=== PATIENT | male | born 1980 | race Caucasian/White ===

== ENCOUNTER 2023-05-19 16:47 | Emergency (ER) | payer BC ==
[~2023-05-19] VITALS: Ht 170.2 cm; Wt 122.7 kg
[2023-05-19 17:15] VITALS: BP 197/87
== END 2023-05-19 21:58 | disposition left against medical advice (07) ==
LOC: ER 16:48
DX: R22.41 Localized swelling, mass and lump, right lower limb (principal); Z53.21 Procedure and treatment not carried out due to patient leaving prior to being seen by health care provider
CPT/HCPCS: 93971; 99281

== ENCOUNTER 2023-07-18 09:18 | Inpatient (IN) | payer BC ==
[~2023-07-18] VITALS: Ht 170.2 cm; Wt 110.8 kg
[2023-07-18] VITALS (10 sets, daily range): BP systolic 100–148; BP diastolic 43–78; PULSE 77–124; RESP 21–39; O2SAT 91–97
[2023-07-18 09:44] LABS: BASOPHILS # (AUTO) 0.1 X10'3 (0-0.2); BASOPHILS % (AUTO) 0.4 % (0-1); EOSINOPHILS # (AUTO) 0.2 X10'3 (0-0.9); EOSINOPHILS % (AUTO) 1.1 % (0-6); HEMATOCRIT 32.3 % (42.0-52.0); HEMOGLOBIN 9.9 g/dl (14.0-17.9); LYMPHOCYTES % (AUTO) 6.9 % (21-51); MEAN CORPUSCULAR HEMOGLOBIN 24.3 PG (27.0-31.0); MEAN CORPUSCULAR HGB CONC 30.8 g/dL (33.0-36.5); MEAN CORPUSCULAR VOLUME 78.9 FL (78-98); MEAN PLATELET VOLUME 10.1 FL (7.4-10.4); MONOCYTES # (AUTO) 1.3 X10'3 (0-0.9); MONOCYTES % (AUTO) 9.1 % (2-12); NEUTROPHILS # (AUTO) 11.7 X10'3 (1.8-7.7); NEUTROPHILS % (AUTO) 82.5 % (42-75); PLATELET COUNT 226 X10'3 (140-440); RED BLOOD COUNT 4.09 X10'6 (4.70-6.10); RED CELL DISTRIBUTION WIDTH 18.5 % (11.5-14.5); WHITE BLOOD COUNT 14.2 X10'3 (4.5-11.0)
[2023-07-18 10:20] LABS: ALANINE AMINOTRANSFERASE 45 U/L (12-78); ALBUMIN 2.6 G/DL (3.4-5.0); ALBUMIN/GLOBULIN RATIO 0.5 (1.1-1.5); ALKALINE PHOSPHATASE 90 IU/L (46-116); ANION GAP 9 (8-16); ASPARTATE AMINO TRANSFERASE 31 U/L (10-37); BILIRUBIN,TOTAL 0.5 MG/DL (0.1-1.0); BLOOD UREA NITROGEN 16 MG/DL (7-18); BUN/CREATININE RATIO 13.3 (10.0-20.0); CALCIUM 8.7 MG/DL (8.5-10.1); CHLORIDE 97 MMOL/L (99-107); GLUCOSE 151 MG/DL (70-104); POTASSIUM 3.8 MMOL/L (3.5-5.1); SODIUM 132 MMOL/L (135-145); TOTAL CARBON DIOXIDE 26.4 MMOL/L (24-32); TOTAL PROTEIN 8.2 G/DL (6.4-8.2); eCRCL 75 ML/MIN; eGFR 66 ML/MIN
[2023-07-18 10:27] LABS: PRO BRAIN NATRIURETIC PEPTIDE 1278 PG/ML (0-125)
[2023-07-18] MEDS ORDERED: iohexol 350MG/ML 100ml bottle IV ONE (10:44)
[2023-07-18 10:50] LABS: APTT 28 SECONDS (22-32); D-DIMER 3.48 MG/L FEU (0-0.50); INR 1.1 INR; PROTHROMBIN TIME 11.4 SECONDS (9.0-12.0)
[2023-07-18 11:43] LABS: HIV ANTIBODY 1&2 RAPID NON-REACTIVE (Neg)
[2023-07-18 11:45] LABS: C-REACTIVE PROTEIN 39.06 MG/DL (0.0-0.5)
[2023-07-18 12:42] LABS: ABG BASE EXCESS -1.2 mmol/L (-2.0-2.0); ABG HCO3 22.4 mmol/L (22.0-26.0); ABG OXYGEN SATURATION 89.8 % (94-97); ABG PCO2 (T) 32.7 mmHg (35.0-48.0); ABG PH (T) 7.453 (7.340-7.440); ABG PO2 (T) 54.4 mmHg (75.0-100.0); ALLEN'S TEST Modified; FCOHb 0.5 % (0.0-3.9); FHHb 10.1 % (0.0-5.0); FLOW 6 L/min; FMetHb 0.1 % (0.0-1.5); FO2Hb 89.3 % (94-97); MODE HIGH FLOW; TOTAL HEMOGLOBIN 9.2 G/dl (14.0-17.9)
[2023-07-18] MEDS ORDERED: CefTRIAXone 2gm/D5W 50ml BAG 50 ML IV ONE (12:45)
[2023-07-18] MEDS ORDERED: azithromycin/NS 500mg/250ml 250 ML IV ONE (12:45)
[2023-07-18 14:08] LABS: ABG BASE EXCESS -1.7 mmol/L (-2.0-2.0); ABG OXYGEN SATURATION 98.1 % (94-97); ABG PCO2 (T) 33.9 mmHg (35.0-48.0); ABG PH (T) 7.431 (7.340-7.440); ABG PO2 (T) 104.6 mmHg (75.0-100.0); ALLEN'S TEST POSITIVE; FCOHb 0.3 % (0.0-3.9); FHHb 1.9 % (0.0-5.0); FMetHb 0.2 % (0.0-1.5); FO2Hb 97.6 % (94-97); MODE MASK - CPAP; RESPIRATORY RATE 0 b/min; TIDAL VOLUME 668 mL; TOTAL HEMOGLOBIN 10.8 G/dl (14.0-17.9)
[2023-07-18] MEDS ORDERED: LORazepam 2 mg/ml vial IV ONE (14:30)
[2023-07-18] MEDS ORDERED: potassium Cl 40MEQ/1/2NS 520ml 520 ML IV PRN (15:10)
[2023-07-18] MEDS ORDERED: mag hydrox/Alum hydrox/simeth 30ml oral suspension PO PRN (15:10)
[2023-07-18] MEDS ORDERED: potassium Cl 20 mEq SR tablet PO PRN ×2 (15:10)
[2023-07-18] MEDS ORDERED: ondansetron/PF 4mg/2ml inj IV PRN (15:10)
[2023-07-18] MEDS ORDERED: magnesium Cl slow-release 64mg tablet PO PRN (15:10)
[2023-07-18] MEDS ORDERED: magnesium hydroxide 30ml (MOM) UD suspension PO PRN (15:10)
[2023-07-18] MEDS ORDERED: magnesium 4gm in 100ml NS 100 ML IV PRN (15:10)
[2023-07-18] MEDS ORDERED: magnesium 2GM in 50ml NS 50 ML IV PRN (15:10)
[2023-07-18] MEDS ORDERED: furosemide 10 MG/1 ML 10ml inj IV ONE (15:50)
[2023-07-18] MEDS ORDERED: LidoCAINE 2% Topical Jelly 11mL syringe TOP ONE (15:52)
[2023-07-18] MEDS ORDERED: CefTRIAXone/D5W-Rocephin 1gm 50 ML IV ONE (16:00)
[2023-07-18] MEDS ORDERED: ALBU17AE26 PO (16:04)
[2023-07-18] MEDS ORDERED: BUPR1FIL56 SL (16:04)
[2023-07-18] MEDS ORDERED: LEVO-65 PO (16:04)
[2023-07-18] MEDS: dexmedetomidin/NS 400mcg/100ml 100 ML IV SCH ×2 (16:30→21:05)
[2023-07-18 17:01] LABS: MAGNESIUM 2.4 MG/DL (1.5-2.4); POTASSIUM 4.1 MMOL/L (3.5-5.1)
[2023-07-18 17:45] LABS: C-REACTIVE PROTEIN 35.19 MG/DL (0.0-0.5)
--- NOTE | 2023-07-18 17:45 | NUR ---
Precedex drip initiated per MD Ellis - HR in 120's, BP's 170's/90's. Mendoza placed with light straw-colored urine outflow. at bedside.
--- NOTE | 2023-07-18 19:03 | NUR ---
patients significant other Melani contact #
[2023-07-18] MEDS: docusate sod 100mg capsule PO SCH (19:04)
[2023-07-18] MEDS: K and/or MAG REPLACEMENT MC SCH (19:04)
[2023-07-18] MEDS ORDERED: ketorolac trometh. 30mg/ml inj. IV ONE (21:30)
[2023-07-18] MEDS: furosemide 20 MG/2 ML vial IV SCH (21:52)
[2023-07-19] VITALS (36 sets, daily range): BP systolic 92–136; BP diastolic 42–68; PULSE 67–127; RESP 12–40; O2SAT 89–96
[2023-07-19] MEDS: dexmedetomidin/NS 400mcg/100ml 100 ML IV SCH ×3 (00:03→05:03)
[2023-07-19] MEDS: acetaminophen 325mg tablet PO PRN (02:06)
[2023-07-19] MEDS: furosemide 20 MG/2 ML vial IV SCH ×2 (02:06→07:52)
[2023-07-19] MEDS ORDERED: LORazepam 2 mg/ml vial IV ONE (04:25)
[2023-07-19 06:21] LABS: RED CELL DISTRIBUTION WIDTH 18.3 % (11.5-14.5)
[2023-07-19 06:24] LABS: BASOPHILS % (AUTO) 0.3 % (0-1); EOSINOPHILS # (AUTO) 0.2 X10'3 (0-0.9); EOSINOPHILS % (AUTO) 1.4 % (0-6); HEMOGLOBIN 8.5 g/dl (14.0-17.9); LYMPHOCYTES % (AUTO) 8.7 % (21-51); MEAN CORPUSCULAR HEMOGLOBIN 24.9 PG (27.0-31.0); MEAN CORPUSCULAR HGB CONC 31.4 g/dL (33.0-36.5); MEAN CORPUSCULAR VOLUME 79.2 FL (78-98); MEAN PLATELET VOLUME 10.2 FL (7.4-10.4); MONOCYTES # (AUTO) 1.6 X10'3 (0-0.9); MONOCYTES % (AUTO) 13.8 % (2-12); NEUTROPHILS # (AUTO) 8.9 X10'3 (1.8-7.7); NEUTROPHILS % (AUTO) 75.8 % (42-75); PLATELET COUNT 149 X10'3 (140-440); RED BLOOD COUNT 3.41 X10'6 (4.70-6.10); WHITE BLOOD COUNT 11.8 X10'3 (4.5-11.0)
[2023-07-19] MEDS: K and/or MAG REPLACEMENT MC SCH ×2 (06:27→19:48)
[2023-07-19 06:35] LABS: ALBUMIN 2.1 G/DL (3.4-5.0); ANION GAP 7 (8-16); BLOOD UREA NITROGEN 24 MG/DL (7-18); BUN/CREATININE RATIO 13.4 (10.0-20.0); CHLORIDE 98 MMOL/L (99-107); CREATININE 1.79 MG/DL (0.60-1.10); GLUCOSE 129 MG/DL (70-104); MAGNESIUM 2.5 MG/DL (1.5-2.4); PHOSPHORUS 3.4 MG/DL (2.3-4.5); POTASSIUM 4.4 MMOL/L (3.5-5.1); SODIUM 135 MMOL/L (135-145); eCRCL 50 ML/MIN; eGFR 42 ML/MIN
[2023-07-19] MEDS: docusate sod 100mg capsule PO SCH ×2 (07:57→19:49)
[2023-07-19] MEDS ORDERED: buprenorphine/naloxone 2-0.5mg sublingual tablet SL SCH (08:00)
[2023-07-19] MEDS: ALPRAZolam 0.5mg tablet PO PRN (09:18)
[2023-07-19] MEDS: azithromycin 250mg tablet PO SCH (09:18)
[2023-07-19] MEDS: albuterol 2.5 MG/3 ML nebule NEB PRN (11:41)
[2023-07-19] MEDS ORDERED: CefTRIAXone 2gm/D5W 50ml BAG 50 ML IV ONE (12:05)
[2023-07-19] MEDS ORDERED: azithromycin/NS 500mg/250ml 250 ML IV SCH (13:00)
[2023-07-19] MEDS: linezolid 600mg tablet PO SCH ×2 (13:02→19:49)
[2023-07-19] MEDS: pantoprazole 40mg Tablet.DR PO SCH (13:02)
[2023-07-19] MEDS ORDERED: ALPRAZolam 0.25mg tablet PO PRN (13:45)
[2023-07-19] MEDS: methylPREDNISolone sod succ 125mg/2ml vial IV SCH ×2 (13:47→19:49)
[2023-07-19] MEDS: heparin, porcine 5000 units/ml vial SQ SCH (15:51)
[2023-07-19] MEDS ORDERED: CefTRIAXone/D5W-Rocephin 1gm 50 ML IV SCH (16:00)
[2023-07-19] MEDS ORDERED: LORazepam 2 mg/ml vial IV PRN (18:45)
[2023-07-19] MEDS: buprenorphine/naloxone 2-0.5mg sublingual tablet SL SCH (19:18)
[2023-07-19] MEDS: LORazepam 2 mg/ml vial IV PRN ×2 (19:18→22:53)
[2023-07-20] VITALS (32 sets, daily range): BP systolic 104–138; BP diastolic 43–79; PULSE 93–116; RESP 19–34; O2SAT 85–98
[2023-07-20] MEDS: heparin, porcine 5000 units/ml vial SQ SCH ×3 (00:10→16:47)
[2023-07-20] MEDS: LORazepam 2 mg/ml vial IV PRN ×8 (01:00→23:20)
[2023-07-20] MEDS: methylPREDNISolone sod succ 125mg/2ml vial IV SCH ×4 (01:57→20:22)
[2023-07-20] MEDS: ALPRAZolam 0.5mg tablet PO PRN (02:26)
--- NOTE | 2023-07-20 03:41 | NUR ---
Had a long discussion with the pt regarding intubation with RT at bedside. While the pt is actually on less therapy in terms of his FiO2 requirement (95% at start of shift down to 65-75% now), I worry he is tiring out. He has been trying to lay down all shift to sleep but can't despite anxiolytic medications being used he needs to sit up to feel comfortable breathing and even then he seems more labored than the start of shift. I expressed my concern that if he's unable to get any actual rest it may lead to worsening of his breathing and eventual confusion/delirium due to not sleeping and the medications to control anxiety. Suggested the pt talk to the doctor today about possible elective intubation which he was already aware may be a necessity and isn't really against at all if it's determined to be the best route for him.
--- NOTE | 2023-07-20 06:30 | NUR ---
Received report from EUGENE Salmon
[2023-07-20 06:46] LABS: BASOPHILS % (AUTO) 0.1 % (0-1); EOSINOPHILS % (AUTO) 0 % (0-6); HEMOGLOBIN 9.1 g/dl (14.0-17.9); RED CELL DISTRIBUTION WIDTH 18.4 % (11.5-14.5)
[2023-07-20 06:49] LABS: HEMATOCRIT 29.3 % (42.0-52.0); MEAN CORPUSCULAR HEMOGLOBIN 24.3 PG (27.0-31.0); MEAN CORPUSCULAR HGB CONC 31.1 g/dL (33.0-36.5); MEAN CORPUSCULAR VOLUME 78.3 FL (78-98); MEAN PLATELET VOLUME 11.2 FL (7.4-10.4); MONOCYTES # (AUTO) 0.9 X10'3 (0-0.9); MONOCYTES % (AUTO) 5.7 % (2-12); NEUTROPHILS % (AUTO) 88.2 % (42-75); PLATELET COUNT 187 X10'3 (140-440); RED BLOOD COUNT 3.75 X10'6 (4.70-6.10); WHITE BLOOD COUNT 15.8 X10'3 (4.5-11.0)
[2023-07-20 07:11] LABS: ALBUMIN 2.2 G/DL (3.4-5.0); ANION GAP 8 (8-16); BLOOD UREA NITROGEN 25 MG/DL (7-18); BUN/CREATININE RATIO 20.5 (10.0-20.0); CALCIUM 8.5 MG/DL (8.5-10.1); CHLORIDE 97 MMOL/L (99-107); CREATININE 1.22 MG/DL (0.60-1.10); GLUCOSE 147 MG/DL (70-104); PHOSPHORUS 3.2 MG/DL (2.3-4.5); POTASSIUM 4.1 MMOL/L (3.5-5.1); SODIUM 133 MMOL/L (135-145); TOTAL CARBON DIOXIDE 27.7 MMOL/L (24-32); eCRCL 74 ML/MIN; eGFR 65 ML/MIN
[2023-07-20] MEDS: albuterol 2.5 MG/3 ML nebule NEB PRN (07:56)
[2023-07-20] MEDS: BUPRENORP NALOX SL SCH (08:00)
[2023-07-20] MEDS: K and/or MAG REPLACEMENT MC SCH ×2 (08:00→20:00)
[2023-07-20] MEDS: docusate sod 100mg capsule PO SCH ×2 (08:31→20:23)
[2023-07-20] MEDS: linezolid 600mg tablet PO SCH ×2 (08:32→20:22)
[2023-07-20] MEDS: furosemide 40mg tablet PO SCH (08:32)
[2023-07-20] MEDS: azithromycin 250mg tablet PO SCH (08:32)
[2023-07-20] MEDS: pantoprazole 40mg Tablet.DR PO SCH (08:33)
[2023-07-20] MEDS: CefTRIAXone 2gm/D5W 50ml BAG 50 ML IV SCH (10:20)
--- NOTE | 2023-07-20 12:14 | NUR ---
Initial: Pt admit for acute respiratory failure, PNA, suspected NGA, and CHF. Per ID physician note pt with sepsis and leukocytosis. Pt started on routine Zyvox. IF to continue on this abx pt would benefit from low tyramine nutrition therapy education. Pt on a regular diet and overall eating well, documented with average 75% PO intake meeting 100% estimated energy needs and 74% estimated protein needs. Pt documented with 100% PO intake at breakfast this morning which will meet estimated energy and protein needs. LBM 07/17 per EMR. pt receiving routine bowel care and has PRN bowel care available though not documented to be given. D/w dietary to send prunes and prune juice with next meal to assist with a BM. Will continue to follow and monitor need for further nutrition intervention. Recommendations: 1) Continue regular diet 2) Monitor need for ONS/additional protein 3) Routine bowel care; utilize PRN bowel care if pt continues without a BM 4) Scaled weight this admit; subsequent weekly scaled weights 5) Low tyramine nutrition therapy education as appropriate Addendum: 07/20/23 at [address] Amended: Links added.
--- NOTE | 2023-07-20 18:35 | NUR ---
Report given to EUGENE Salmon
[2023-07-20] MEDS: buprenorphine/naloxone 2-0.5mg sublingual tablet SL SCH (19:14)
--- NOTE | 2023-07-20 22:05 | NUR ---
Pt agreed to attempt sleeping in prone position to help improve oxygenation
[2023-07-21] VITALS (27 sets, daily range): BP systolic 106–147; BP diastolic 47–79; PULSE 88–113; RESP 18–33; TEMP 98–98.8; O2SAT 87–98
[2023-07-21] MEDS: heparin, porcine 5000 units/ml vial SQ SCH ×3 (00:25→15:17)
[2023-07-21] MEDS: methylPREDNISolone sod succ 125mg/2ml vial IV SCH ×3 (02:07→15:18)
[2023-07-21] MEDS: LORazepam 2 mg/ml vial IV PRN ×5 (03:08→20:04)
[2023-07-21] MEDS: linezolid 600mg tablet PO SCH (06:39)
[2023-07-21] MEDS: CefTRIAXone 2gm/D5W 50ml BAG 50 ML IV SCH (06:40)
[2023-07-21] MEDS: pantoprazole 40mg Tablet.DR PO SCH ×2 (06:40→16:27)
[2023-07-21] MEDS: azithromycin 250mg tablet PO SCH (06:47)
[2023-07-21] MEDS: furosemide 40mg tablet PO SCH (06:48)
[2023-07-21] MEDS: docusate sod 100mg capsule PO SCH ×2 (06:48→20:09)
[2023-07-21] MEDS: K and/or MAG REPLACEMENT MC SCH ×2 (06:53→20:00)
--- NOTE | 2023-07-21 07:17 | NUR ---
RN updated Dr. Carrington on pt. status. No CXR needed this am per Dr. Carrington. Pt. can transfer to floor. time study engineer aware.
[2023-07-21 07:35] LABS: BASOPHILS # (AUTO) 0.1 X10'3 (0-0.2); BASOPHILS % (AUTO) 0.3 % (0-1); EOSINOPHILS % (AUTO) 0 % (0-6); HEMATOCRIT 31.9 % (42.0-52.0); HEMOGLOBIN 9.8 g/dl (14.0-17.9); LYMPHOCYTES % (AUTO) 5.6 % (21-51); MEAN CORPUSCULAR HEMOGLOBIN 24.1 PG (27.0-31.0); MEAN CORPUSCULAR HGB CONC 30.7 g/dL (33.0-36.5); MEAN CORPUSCULAR VOLUME 78.7 FL (78-98); MEAN PLATELET VOLUME 11.1 FL (7.4-10.4); MONOCYTES # (AUTO) 0.9 X10'3 (0-0.9); MONOCYTES % (AUTO) 4.6 % (2-12); NEUTROPHILS # (AUTO) 16.6 X10'3 (1.8-7.7); NEUTROPHILS % (AUTO) 89.5 % (42-75); PLATELET COUNT 234 X10'3 (140-440); RED BLOOD COUNT 4.05 X10'6 (4.70-6.10); RED CELL DISTRIBUTION WIDTH 18.7 % (11.5-14.5); WHITE BLOOD COUNT 18.5 X10'3 (4.5-11.0)
[2023-07-21 07:43] LABS: ALBUMIN 2.2 G/DL (3.4-5.0); ANION GAP 9 (8-16); BLOOD UREA NITROGEN 24 MG/DL (7-18); BUN/CREATININE RATIO 21.8 (10.0-20.0); CALCIUM 8.7 MG/DL (8.5-10.1); CHLORIDE 99 MMOL/L (99-107); GLUCOSE 160 MG/DL (70-104); MAGNESIUM 2.9 MG/DL (1.5-2.4); POTASSIUM 4.2 MMOL/L (3.5-5.1); SODIUM 137 MMOL/L (135-145); TOTAL CARBON DIOXIDE 29.3 MMOL/L (24-32); eCRCL 82 ML/MIN; eGFR 73 ML/MIN
[2023-07-21] MEDS: BUPRENORP NALOX SL SCH (08:00)
[2023-07-21 08:31] LABS: ANISOCYTOSIS 2+; LARGE PLATELETS FEW; MICROCYTOSIS 1+; PLATELET ESTIMATE NORMAL; TOTAL CELLS COUNTED 100
[2023-07-21 08:32] LABS: HYPOCHROMASIA 1+; ROULEAUX 1+
[2023-07-21 08:34] LABS: HYPERSEGMENTED NEUTROPHILS 1+
[2023-07-21 08:40] LABS: POIKILOCYTOSIS 1+; POLYCHROMASIA 2+
--- NOTE | 2023-07-21 11:49 | NUR ---
Pt. transferred to 3010 via w/c on non-rebreather mask accompanied by RT and tech in stable condition. at bedside. Phone report given to Roxanna KNIGHT prior to transfer. Roxanna KNIGHT aware of pt's arrival. Pt. placed on Tele bed. Call light in reach.
--- NOTE | 2023-07-21 12:09 | NUR ---
F/u 07/21: Pt/family seen by RD at bedside for written/verbal low-tyramine diet ed w/ RD contact information provided. Pt family reports bringing in food from home for meals; RD provided verbal high protein diet ed-family to bring in high protein foods from home w/ meals. RD encouraged pt/family to contact dietitian's office if further nutrition questions/concerns. Addendum: 07/21/23 at [address] Amended: Links added.
[2023-07-21] MEDS: metoprolol succinate 25mg (24-HOUR) SR. Tablet PO SCH (15:16)
[2023-07-21] MEDS: EMPAGLIFLOZIN 10 MG TABLET PO SCH (15:16)
[2023-07-21] MEDS ORDERED: ipratropium/albuterol 3ml nebule NEB PRN (15:25)
[2023-07-21] MEDS ORDERED: furosemide 20 MG/2 ML vial IV ONE (15:25)
[2023-07-21 15:58] LABS: HEMOGLOBIN A1C 5.8 % (4.5-6.2)
[2023-07-21 16:24] LABS: % IRON SATURATION 5 % (11-46); IRON 13 UG/DL (53-167); TOTAL IRON BINDING CAPACITY 237 UG/DL (259-388)
[2023-07-21] MEDS: folic acid 1mg tablet PO SCH (16:27)
[2023-07-21] MEDS: thiamine 100mg tablet PO SCH (16:27)
[2023-07-21 16:32] LABS: CHOL/HDL RATIO 8.1 (0.00-4.99); CHOLESTEROL 187 MG/DL (0-200); HDL CHOLESTEROL 23 MG/DL (35-60); LDL CHOLESTEROL 127 MG/DL (50-100); PRO BRAIN NATRIURETIC PEPTIDE 1629 PG/ML (0-125); THYROID STIMULATING HORMONE 0.68 ulU/ml (0.34-4.50); TRIGLYCERIDES 96 MG/DL (20-135)
[2023-07-21 16:35] LABS: FERRITIN 79 NG/ML (26-388)
[2023-07-21] MEDS: sodium ferric gluc complex inj 125 MG in normal saline 100ml IV soln 100 ML IV SCH (16:56)
[2023-07-21 18:05] LABS: BILIRUBIN,URINE NEGATIVE (Neg); CLARITY,URINE CLEAR (Clear); COLOR,URINE STRAW (Yellow); GLUCOSE, URINE NEGATIVE (Neg); KETONES,URINE NEGATIVE (Neg); LEUKOCYTE ESTERASE ,URINE NEGATIVE (Neg); NITRITES, URINE NEGATIVE (Neg); OCCULT BLOOD,URINE NEGATIVE (Neg); PROTEIN,URINE NEGATIVE (Neg); UROBILINOGEN,URINE 0.2 E.U/dL (0.2-1.0)
[2023-07-21 18:15] LABS: UA COLLECTION TYPE NON-SPECIFIED
[2023-07-21 18:29] LABS: URINE AMPHETAMINE SCREEN NEGATIVE (Neg); URINE BARBITUATE SCREEN NEGATIVE (Neg); URINE BENZODIAZEPINES SCREEN NEGATIVE (Neg); URINE CANNABINOID SCREEN NEGATIVE (Neg); URINE COCAINE SCREEN NEGATIVE (Neg); URINE METHADONE SCREEN NEGATIVE (Neg); URINE OPIATE SCREEN NEGATIVE (Neg); URINE PHENCYCLIDINE SCREEN NEGATIVE (Neg)
--- NOTE | 2023-07-21 18:42 | NUR ---
Problems reprioritized. Patient report given, questions answered & plan of care reviewed with EUGENE BASS.
--- NOTE | 2023-07-21 18:45 | NUR ---
Patient in room PCU 3010. I have received report from EUGENE Mcknight and had the opportunity to ask questions and assume patient care. Patient sleeping comfortably on hospital bed, is at bedside. I will continue to monitor.
[2023-07-21 18:48] LABS: TOTAL PROTEIN,URINE RANDOM 9.9 MG/DL
[2023-07-21] MEDS: ipratropium/albuterol 3ml nebule NEB SCH ×2 (19:00→23:10)
[2023-07-21] MEDS: furosemide 20 MG/2 ML vial IV SCH (20:06)
[2023-07-21] MEDS: buprenorphine/naloxone 2-0.5mg sublingual tablet SL SCH (20:09)
[2023-07-21] MEDS: sacubitril/valsartan 24mg-26mg tablet PO SCH (20:09)
[2023-07-22] VITALS (28 sets, daily range): BP systolic 132–149; BP diastolic 75–80; PULSE 96–114; RESP 15–24; TEMP 98–98.8; O2SAT 90–96
[2023-07-22] MEDS: methylPREDNISolone sod succ 125mg/2ml vial IV SCH ×3 (00:11→16:08)
[2023-07-22] MEDS: heparin, porcine 5000 units/ml vial SQ SCH ×3 (00:12→16:10)
[2023-07-22] MEDS: ALPRAZolam 0.5mg tablet PO PRN (00:12)
[2023-07-22] MEDS: LORazepam 2 mg/ml vial IV PRN ×5 (03:09→21:58)
[2023-07-22] MEDS: ipratropium/albuterol 3ml nebule NEB SCH ×6 (03:40→23:06)
[2023-07-22 06:08] LABS: BASOPHILS % (AUTO) 0.1 % (0-1); EOSINOPHILS % (AUTO) 0 % (0-6); HEMATOCRIT 31.2 % (42.0-52.0); HEMOGLOBIN 9.4 g/dl (14.0-17.9); LYMPHOCYTES % (AUTO) 5.7 % (21-51); MEAN CORPUSCULAR HEMOGLOBIN 23.9 PG (27.0-31.0); MEAN CORPUSCULAR HGB CONC 30.1 g/dL (33.0-36.5); MEAN CORPUSCULAR VOLUME 79.4 FL (78-98); MEAN PLATELET VOLUME 10.2 FL (7.4-10.4); MONOCYTES # (AUTO) 1.3 X10'3 (0-0.9); MONOCYTES % (AUTO) 7.6 % (2-12); NEUTROPHILS # (AUTO) 15.1 X10'3 (1.8-7.7); NEUTROPHILS % (AUTO) 86.6 % (42-75); PLATELET COUNT 219 X10'3 (140-440); RED BLOOD COUNT 3.94 X10'6 (4.70-6.10); RED CELL DISTRIBUTION WIDTH 18.9 % (11.5-14.5); WHITE BLOOD COUNT 17.5 X10'3 (4.5-11.0)
[2023-07-22 06:11] LABS: INR 1.1 INR
[2023-07-22 06:16] LABS: ALANINE AMINOTRANSFERASE 73 U/L (12-78); ALBUMIN/GLOBULIN RATIO 0.5 (1.1-1.5); ALKALINE PHOSPHATASE 72 IU/L (46-116); AMYLASE 64 U/L (25-115); ANION GAP 7 (8-16); ASPARTATE AMINO TRANSFERASE 46 U/L (10-37); BILIRUBIN,TOTAL 0.2 MG/DL (0.1-1.0); BLOOD UREA NITROGEN 22 MG/DL (7-18); BUN/CREATININE RATIO 17.9 (10.0-20.0); CALCIUM 8.6 MG/DL (8.5-10.1); CHLORIDE 103 MMOL/L (99-107); CREATININE 1.23 MG/DL (0.60-1.10); GLUCOSE 139 MG/DL (70-104); LIPASE 97 U/L (73-393); MAGNESIUM 2.5 MG/DL (1.5-2.4); PHOSPHORUS 4.2 MG/DL (2.3-4.5); POTASSIUM 4.4 MMOL/L (3.5-5.1); SODIUM 139 MMOL/L (135-145); TOTAL PROTEIN 6.1 G/DL (6.4-8.2); eCRCL 73 ML/MIN; eGFR 65 ML/MIN
--- NOTE | 2023-07-22 06:30 | NUR ---
Problems reprioritized. Patient report given, questions answered & plan of care reviewed with EUGENE Mcknight.
--- NOTE | 2023-07-22 06:36 | NUR ---
Patient in room PCU 3010. I have received report from EUGENE BASS, and had the opportunity to ask questions and assume patient care.
[2023-07-22 06:44] LABS: PROTHROMBIN TIME 11.9 SECONDS (9.0-12.0)
[2023-07-22] MEDS: K and/or MAG REPLACEMENT MC SCH ×2 (06:45→20:00)
[2023-07-22 07:47] LABS: ANISOCYTOSIS 2+; MICROCYTOSIS 1+; PLATELET ESTIMATE NORMAL; TOTAL CELLS COUNTED 100
[2023-07-22 07:48] LABS: HYPERSEGMENTED NEUTROPHILS 1+; LARGE PLATELETS FEW; POLYCHROMASIA 1+
[2023-07-22] MEDS: BUPRENORP NALOX SL SCH (08:00)
[2023-07-22] MEDS: furosemide 20 MG/2 ML vial IV SCH ×2 (08:07→20:28)
[2023-07-22] MEDS: CefTRIAXone 2gm/D5W 50ml BAG 50 ML IV SCH (08:09)
[2023-07-22] MEDS: docusate sod 100mg capsule PO SCH ×2 (08:11→20:00)
[2023-07-22] MEDS: folic acid 1mg tablet PO SCH (08:11)
[2023-07-22] MEDS: azithromycin 250mg tablet PO SCH (08:11)
[2023-07-22] MEDS: pantoprazole 40mg Tablet.DR PO SCH (08:12)
[2023-07-22] MEDS: thiamine 100mg tablet PO SCH (08:12)
[2023-07-22] MEDS: multivitamins, therapeutics tablet PO SCH (08:12)
[2023-07-22] MEDS: EMPAGLIFLOZIN 10 MG TABLET PO SCH (08:12)
[2023-07-22] MEDS: metoprolol succinate 25mg (24-HOUR) SR. Tablet PO SCH (08:12)
[2023-07-22] MEDS: sodium ferric gluc complex inj 125 MG in normal saline 100ml IV soln 100 ML IV SCH (09:47)
[2023-07-22] MEDS: spironolactone 25 MG tablet PO SCH (10:01)
[2023-07-22] MEDS: sacubitril/valsartan 24mg-26mg tablet PO SCH ×2 (10:05→20:28)
--- NOTE | 2023-07-22 11:35 | NUR ---
PAGE SENT Message: [id number], ILDEFONSO FRANCOIS, PT REPORTS HE ONLY TAKES SUBOXONE ONCE A DAY, PM. CURRENTLY EMAR HAS PT WITH FILMS (PT'S OWN ) IN THE MORNING, AND TABLETS AT NIGHT. PT REPORTS THE PM SUBOXONE ADEQUATE. D/C AM DOSE? THANK YOU, PETER [phone] Custom Responses: promotional table spacer Transaction number: [id number]
--- NOTE | 2023-07-22 18:16 | NUR ---
Problems reprioritized. Patient report given, questions answered & plan of care reviewed with EUGENE DELGADO.
--- NOTE | 2023-07-22 18:30 | NUR ---
Patient in room PCU 3010. I have received report from PETER and had the opportunity to ask questions and assume patient care.
[2023-07-22] MEDS: buprenorphine/naloxone 2-0.5mg sublingual tablet SL SCH (20:27)
[2023-07-23] VITALS (27 sets, daily range): BP systolic 110–150; BP diastolic 71–89; PULSE 90–114; RESP 16–24; TEMP 97.6–98.1; O2SAT 88–98
[2023-07-23] MEDS: methylPREDNISolone sod succ 125mg/2ml vial IV SCH ×3 (00:16→16:07)
[2023-07-23] MEDS: heparin, porcine 5000 units/ml vial SQ SCH ×3 (00:16→16:08)
[2023-07-23] MEDS: ipratropium/albuterol 3ml nebule NEB SCH ×6 (03:26→23:09)
--- NOTE | 2023-07-23 06:29 | NUR ---
Problems reprioritized. Patient report given, questions answered & plan of care reviewed with FRAN.
[2023-07-23 06:35] LABS: INR 1.1 INR; PROTHROMBIN TIME 11.9 SECONDS (9.0-12.0)
[2023-07-23 06:43] LABS: ALANINE AMINOTRANSFERASE 75 U/L (12-78); ALBUMIN 2.1 G/DL (3.4-5.0); ALBUMIN/GLOBULIN RATIO 0.5 (1.1-1.5); ALKALINE PHOSPHATASE 74 IU/L (46-116); AMYLASE 56 U/L (25-115); ANION GAP 4 (8-16); ASPARTATE AMINO TRANSFERASE 28 U/L (10-37); BILIRUBIN,TOTAL 0.3 MG/DL (0.1-1.0); BLOOD UREA NITROGEN 22 MG/DL (7-18); BUN/CREATININE RATIO 17.5 (10.0-20.0); CALCIUM 8.8 MG/DL (8.5-10.1); CHLORIDE 103 MMOL/L (99-107); CREATININE 1.26 MG/DL (0.60-1.10); EOSINOPHILS % (AUTO) 0 % (0-6); GLUCOSE 122 MG/DL (70-104); LIPASE 66 U/L (73-393); MAGNESIUM 2.7 MG/DL (1.5-2.4); MONOCYTES # (AUTO) 1.7 X10'3 (0-0.9); MONOCYTES % (AUTO) 7.3 % (2-12); PHOSPHORUS 4.4 MG/DL (2.3-4.5); POTASSIUM 5.1 MMOL/L (3.5-5.1); SODIUM 137 MMOL/L (135-145); TOTAL CARBON DIOXIDE 30.5 MMOL/L (24-32); TOTAL PROTEIN 6.5 G/DL (6.4-8.2); eCRCL 71 ML/MIN; eGFR 63 ML/MIN
--- NOTE | 2023-07-23 06:43 | NUR ---
Patient in room PCU 3010. I have received report from Rand and had the opportunity to ask questions and assume patient care. Addendum: 07/23/23 at 0643 by Daniel Kowalski RN Amended: Links added.
[2023-07-23 06:48] LABS: BASOPHILS % (AUTO) 0.2 % (0-1); LYMPHOCYTES # (AUTO) 1.9 X10'3 (1.1-4.8); LYMPHOCYTES % (AUTO) 8.1 % (21-51); NEUTROPHILS # (AUTO) 19.6 X10'3 (1.8-7.7); NEUTROPHILS % (AUTO) 84.4 % (42-75); RED CELL DISTRIBUTION WIDTH 19.3 % (11.5-14.5); WHITE BLOOD COUNT 23.3 X10'3 (4.5-11.0)
[2023-07-23 07:27] LABS: HEMATOCRIT 35.8 % (42.0-52.0); HEMOGLOBIN 10.7 g/dl (14.0-17.9); MEAN CORPUSCULAR HEMOGLOBIN 23.3 PG (27.0-31.0); MEAN CORPUSCULAR HGB CONC 29.9 g/dL (33.0-36.5); MEAN CORPUSCULAR VOLUME 77.9 FL (78-98); PLATELET COUNT 241 X10'3 (140-440)
[2023-07-23] MEDS: sodium ferric gluc complex inj 125 MG in normal saline 100ml IV soln 100 ML IV SCH (08:00)
[2023-07-23] MEDS: K and/or MAG REPLACEMENT MC SCH ×2 (08:00→20:00)
[2023-07-23 08:17] LABS: ANTINUCLEAR ANTIBODIES Negative (Negative)
[2023-07-23] MEDS: CefTRIAXone 2gm/D5W 50ml BAG 50 ML IV SCH (08:34)
[2023-07-23] MEDS: sacubitril/valsartan 24mg-26mg tablet PO SCH ×2 (08:35→19:28)
[2023-07-23] MEDS: furosemide 20 MG/2 ML vial IV SCH ×2 (08:35→19:27)
[2023-07-23] MEDS: EMPAGLIFLOZIN 10 MG TABLET PO SCH (08:36)
[2023-07-23] MEDS: pantoprazole 40mg Tablet.DR PO SCH (08:36)
[2023-07-23] MEDS: thiamine 100mg tablet PO SCH (08:36)
[2023-07-23] MEDS: azithromycin 250mg tablet PO SCH (08:36)
[2023-07-23] MEDS: multivitamins, therapeutics tablet PO SCH (08:36)
[2023-07-23] MEDS: docusate sod 100mg capsule PO SCH ×2 (08:36→19:28)
[2023-07-23] MEDS: folic acid 1mg tablet PO SCH (08:36)
[2023-07-23] MEDS: metoprolol succinate 25mg (24-HOUR) SR. Tablet PO SCH (08:36)
[2023-07-23] MEDS: spironolactone 25 MG tablet PO SCH (08:38)
[2023-07-23 11:57] LABS: ANISOCYTOSIS 2+; NUCLEATED RED BLOOD CELLS 2 /100WBC (0-0); PLATELET ESTIMATE NORMAL; TOTAL CELLS COUNTED 100
[2023-07-23 11:58] LABS: HYPERSEGMENTED NEUTROPHILS FEW; POLYCHROMASIA 1+
[2023-07-23 11:59] LABS: LARGE PLATELETS FEW
--- NOTE | 2023-07-23 18:21 | NUR ---
Problems reprioritized. Patient report given, questions answered & plan of care reviewed with Kyleigh. Addendum: 07/23/23 at 1822 by Daniel Kowalski RN Amended: Links added.
[2023-07-23] MEDS: buprenorphine/naloxone 2-0.5mg sublingual tablet SL SCH (19:28)
[2023-07-23] MEDS: LORazepam 2 mg/ml vial IV PRN (21:26)
[2023-07-24] VITALS (29 sets, daily range): BP systolic 122–140; BP diastolic 67–80; PULSE 82–116; RESP 13–22; TEMP 97.2–98.8; O2SAT 90–97
[2023-07-24] MEDS: heparin, porcine 5000 units/ml vial SQ SCH ×3 (00:18→16:19)
[2023-07-24] MEDS: methylPREDNISolone sod succ 125mg/2ml vial IV SCH ×3 (00:19→16:19)
[2023-07-24] MEDS: ALPRAZolam 0.5mg tablet PO PRN ×2 (01:19→21:43)
[2023-07-24] MEDS: ipratropium/albuterol 3ml nebule NEB SCH ×7 (03:44→23:28)
--- NOTE | 2023-07-24 06:21 | NUR ---
Problems reprioritized. Patient report given, questions answered & plan of care reviewed with EUGENE PETERS.
--- NOTE | 2023-07-24 06:23 | NUR ---
Patient in room PCU 3010. I have received report from Kyleigh and had the opportunity to ask questions and assume patient care. Addendum: 07/24/23 at 0623 by Daniel Kowalski RN Amended: Links added.
[2023-07-24 06:47] LABS: BASOPHILS % (AUTO) 0.1 % (0-1); EOSINOPHILS % (AUTO) 0.1 % (0-6); LYMPHOCYTES # (AUTO) 2.3 X10'3 (1.1-4.8); LYMPHOCYTES % (AUTO) 8.7 % (21-51); MEAN PLATELET VOLUME 9.6 FL (7.4-10.4); MONOCYTES # (AUTO) 1.6 X10'3 (0-0.9); NEUTROPHILS # (AUTO) 22.8 X10'3 (1.8-7.7); NEUTROPHILS % (AUTO) 85.1 % (42-75); PLATELET COUNT 248 X10'3 (140-440)
[2023-07-24 06:57] LABS: INR 1.1 INR; PROTHROMBIN TIME 11.7 SECONDS (9.0-12.0)
[2023-07-24 07:01] LABS: ALANINE AMINOTRANSFERASE 70 U/L (12-78); ALBUMIN 2.2 G/DL (3.4-5.0); ALBUMIN/GLOBULIN RATIO 0.6 (1.1-1.5); ALKALINE PHOSPHATASE 72 IU/L (46-116); AMYLASE 60 U/L (25-115); ANION GAP 5 (8-16); ASPARTATE AMINO TRANSFERASE 25 U/L (10-37); BILIRUBIN,TOTAL 0.3 MG/DL (0.1-1.0); BLOOD UREA NITROGEN 26 MG/DL (7-18); BUN/CREATININE RATIO 22.8 (10.0-20.0); C-REACTIVE PROTEIN 2.77 MG/DL (0.0-0.5); CALCIUM 8.9 MG/DL (8.5-10.1); CHLORIDE 103 MMOL/L (99-107); CREATININE 1.14 MG/DL (0.60-1.10); GLUCOSE 136 MG/DL (70-104); LIPASE 82 U/L (73-393); MAGNESIUM 2.5 MG/DL (1.5-2.4); PHOSPHORUS 4.5 MG/DL (2.3-4.5); POTASSIUM 4.9 MMOL/L (3.5-5.1); SODIUM 136 MMOL/L (135-145); TOTAL CARBON DIOXIDE 28.2 MMOL/L (24-32); TOTAL PROTEIN 6.2 G/DL (6.4-8.2); eCRCL 79 ML/MIN; eGFR 70 ML/MIN
[2023-07-24 07:15] LABS: HEMATOCRIT 36.1 % (42.0-52.0); HEMOGLOBIN 10.9 g/dl (14.0-17.9); MEAN CORPUSCULAR HEMOGLOBIN 23.5 PG (27.0-31.0); MEAN CORPUSCULAR VOLUME 78.2 FL (78-98); RED BLOOD COUNT 4.62 X10'6 (4.70-6.10); RED CELL DISTRIBUTION WIDTH 18.1 % (11.5-14.5)
[2023-07-24 07:19] LABS: WHITE BLOOD COUNT 26.8 X10'3 (4.5-11.0)
[2023-07-24 07:44] LABS: NUCLEATED RED BLOOD CELLS 4 /100WBC (0-0); TOTAL CELLS COUNTED 100
[2023-07-24 07:45] LABS: ANISOCYTOSIS 2+; MICROCYTOSIS 1+; PLATELET ESTIMATE NORMAL
[2023-07-24 07:46] LABS: HYPOCHROMASIA 1+; LARGE PLATELETS FEW
[2023-07-24 07:48] LABS: POLYCHROMASIA 1+
[2023-07-24] MEDS: metoprolol succinate 25mg (24-HOUR) SR. Tablet PO SCH (07:56)
[2023-07-24] MEDS: EMPAGLIFLOZIN 10 MG TABLET PO SCH (07:56)
[2023-07-24] MEDS: furosemide 20 MG/2 ML vial IV SCH ×2 (07:56→21:43)
[2023-07-24] MEDS: pantoprazole 40mg Tablet.DR PO SCH (07:56)
[2023-07-24] MEDS: sacubitril/valsartan 24mg-26mg tablet PO SCH ×2 (07:56→21:43)
[2023-07-24] MEDS: folic acid 1mg tablet PO SCH (07:56)
[2023-07-24] MEDS: azithromycin 250mg tablet PO SCH (07:56)
[2023-07-24] MEDS: multivitamins, therapeutics tablet PO SCH (07:56)
[2023-07-24] MEDS: spironolactone 25 MG tablet PO SCH (07:57)
[2023-07-24] MEDS: CefTRIAXone 2gm/D5W 50ml BAG 50 ML IV SCH (07:57)
[2023-07-24] MEDS: docusate sod 100mg capsule PO SCH ×2 (07:59→20:00)
[2023-07-24] MEDS: thiamine 100mg tablet PO SCH (07:59)
[2023-07-24] MEDS: sodium ferric gluc complex inj 125 MG in normal saline 100ml IV soln 100 ML IV SCH (08:00)
[2023-07-24] MEDS: K and/or MAG REPLACEMENT MC SCH ×2 (08:00→20:00)
[2023-07-24] MEDS: acetaminophen 325mg tablet PO PRN (12:14)
[2023-07-24] MEDS ORDERED: ketorolac trometh. 30mg/ml inj. IV ONE (14:40)
[2023-07-24 15:26] LABS: ATYPICAL PANCA <1:20 titer (Neg:<1:20); CYTOPLASMIC (C-ANCA) <1:20 titer (Neg:<1:20); PERINUCLEAR (P-ANCA) <1:20 titer (Neg:<1:20)
[2023-07-24 15:26] LABS: ATYPICAL PANCA <1:20 titer (Neg:<1:20); CYTOPLASMIC (C-ANCA) <1:20 titer (Neg:<1:20); PERINUCLEAR (P-ANCA) <1:20 titer (Neg:<1:20)
--- NOTE | 2023-07-24 16:02 | NUR ---
F/u 07/24: Pt continues on a regular diet with average PO in take of 43% x 7 meals. Pt and SO seen at bedside. Pt's SO states she continues bringing outside food such as turkey sandwiches, fruit, string cheese, yogurt and others items of which the pt is eating. During RD visit, noticed a lot of snacks in room. Pt is likely meeting needs with outside food. LBM 07/23 per EMR. Will continue to monitor. Recommendations: 1) Continue regular diet; foods from home per family- educated on protein foods from home 2) Monitor need for ONS/additional protein 3) Routine bowel care 4) weekly scaled wts Addendum: 07/24/23 at [address] Amended: Links added.
--- NOTE | 2023-07-24 18:12 | NUR ---
Problems reprioritized. Patient report given, questions answered & plan of care reviewed with Addendum: 07/24/23 at 1812 by Daniel Kowalski RN Amended: Links added.
[2023-07-24] MEDS: buprenorphine/naloxone 2-0.5mg sublingual tablet SL SCH (19:46)
[2023-07-24] MEDS: ketorolac tromethamine 15mg/ml inj. IV SCH (19:47)
[2023-07-24] MEDS ORDERED: loperamide 2mg capsule PO ONE (23:30)
[2023-07-25] VITALS (25 sets, daily range): BP systolic 103–142; BP diastolic 56–79; PULSE 73–111; RESP 13–20; TEMP 97–97.6; O2SAT 88–98
[2023-07-25] MEDS: heparin, porcine 5000 units/ml vial SQ SCH ×3 (00:23→16:14)
[2023-07-25] MEDS: ipratropium/albuterol 3ml nebule NEB SCH ×6 (03:41→22:54)
[2023-07-25] MEDS: ketorolac tromethamine 15mg/ml inj. IV SCH ×2 (03:48→08:36)
[2023-07-25 06:37] LABS: INR 1.1 INR; PROTHROMBIN TIME 11.5 SECONDS (9.0-12.0)
--- NOTE | 2023-07-25 06:45 | NUR ---
Patient in room PCU 3010. I have received report from Suzanna KNIGHT and had the opportunity to ask questions and assume patient care.Pt sleeping, No distress. HFNC at 30L/ 45% Fio2. Call light in reach. Addendum: 07/25/23 at 0719 by Cindy Rea RN Amended: Links added.
--- NOTE | 2023-07-25 06:49 | NUR ---
Problems reprioritized. Patient report given, questions answered & plan of care reviewed with Cindy KNIGHT.
[2023-07-25 06:55] LABS: ALANINE AMINOTRANSFERASE 77 U/L (12-78); ALBUMIN 2.2 G/DL (3.4-5.0); ALBUMIN/GLOBULIN RATIO 0.6 (1.1-1.5); ALKALINE PHOSPHATASE 73 IU/L (46-116); AMYLASE 79 U/L (25-115); ANION GAP 6 (8-16); ASPARTATE AMINO TRANSFERASE 24 U/L (10-37); BILIRUBIN,TOTAL 0.2 MG/DL (0.1-1.0); BLOOD UREA NITROGEN 33 MG/DL (7-18); CALCIUM 8.6 MG/DL (8.5-10.1); CHLORIDE 103 MMOL/L (99-107); CREATININE 1.27 MG/DL (0.60-1.10); GLUCOSE 121 MG/DL (70-104); LIPASE 104 U/L (73-393); POTASSIUM 4.7 MMOL/L (3.5-5.1); SODIUM 136 MMOL/L (135-145); TOTAL CARBON DIOXIDE 26.9 MMOL/L (24-32); eCRCL 71 ML/MIN; eGFR 62 ML/MIN
[2023-07-25] MEDS: K and/or MAG REPLACEMENT MC SCH ×2 (08:00→20:00)
[2023-07-25] MEDS: docusate sod 100mg capsule PO SCH ×2 (08:30→20:12)
[2023-07-25] MEDS: sacubitril/valsartan 24mg-26mg tablet PO SCH ×2 (08:30→20:12)
[2023-07-25] MEDS: metoprolol succinate 25mg (24-HOUR) SR. Tablet PO SCH (08:30)
[2023-07-25] MEDS: thiamine 100mg tablet PO SCH (08:31)
[2023-07-25] MEDS: pantoprazole 40mg Tablet.DR PO SCH (08:31)
[2023-07-25] MEDS: EMPAGLIFLOZIN 10 MG TABLET PO SCH (08:31)
[2023-07-25] MEDS: folic acid 1mg tablet PO SCH (08:32)
[2023-07-25] MEDS: spironolactone 25 MG tablet PO SCH (08:35)
[2023-07-25] MEDS: furosemide 20 MG/2 ML vial IV SCH ×2 (08:36→20:14)
[2023-07-25] MEDS: methylPREDNISolone sod succ/PF 40mg inj. IV SCH ×2 (08:38→20:14)
[2023-07-25] MEDS: CefTRIAXone 2gm/D5W 50ml BAG 50 ML IV SCH (08:38)
[2023-07-25] MEDS: multivitamins, therapeutics tablet PO SCH (08:53)
[2023-07-25] MEDS: sodium ferric gluc complex inj 125 MG in normal saline 100ml IV soln 100 ML IV SCH (09:42)
--- NOTE | 2023-07-25 14:58 | NUR ---
PAGE TO CASE MANAGEMENT [address] PER DR OTTO HE WOULD LIKE THE PATIENT TO HAVE HOME O2 SET UP FOR SATURDAY. PATIENT IS EXPECTED TO BE ON 10L BY SATURDAY HOPEFULLY. RIKI @[phone]
--- NOTE | 2023-07-25 18:34 | NUR ---
Problems reprioritized. Patient report given, questions answered & plan of care reviewed with Ana KNIGHT.Pt family at bedside. Addendum: 07/25/23 at 1835 by Cindy Rea RN Amended: Links added.
[2023-07-25] MEDS: buprenorphine/naloxone 2-0.5mg sublingual tablet SL SCH (20:13)
[2023-07-25] MEDS: ALPRAZolam 0.5mg tablet PO PRN (22:48)
[2023-07-26] VITALS (26 sets, daily range): BP systolic 91–135; BP diastolic 44–76; PULSE 68–95; RESP 14–22; TEMP 97.1–98.6; O2SAT 92–95
[2023-07-26] MEDS: heparin, porcine 5000 units/ml vial SQ SCH ×3 (01:08→16:18)
[2023-07-26] MEDS: ipratropium/albuterol 3ml nebule NEB SCH ×6 (03:11→23:03)
--- NOTE | 2023-07-26 06:26 | NUR ---
Patient in room PCU 3010. I have received report from Ana KNIHGT and had the opportunity to ask questions and assume patient care. HF at 30L and 40% fio2. Pt sleeping. No distress. Addendum: 07/26/23 at 0628 by Cindy Rea RN Amended: Links added.
[2023-07-26] MEDS: K and/or MAG REPLACEMENT MC SCH ×2 (08:00→20:00)
[2023-07-26] MEDS: CefTRIAXone 2gm/D5W 50ml BAG 50 ML IV SCH (08:21)
[2023-07-26] MEDS: ferrous sulfate 325mg tablet PO SCH ×2 (08:21→20:19)
[2023-07-26] MEDS: folic acid 1mg tablet PO SCH (08:21)
[2023-07-26] MEDS: metoprolol succinate 25mg (24-HOUR) SR. Tablet PO SCH (08:22)
[2023-07-26] MEDS: multivitamins, therapeutics tablet PO SCH (08:22)
[2023-07-26] MEDS: EMPAGLIFLOZIN 10 MG TABLET PO SCH (08:23)
[2023-07-26] MEDS: docusate sod 100mg capsule PO SCH ×2 (08:24→20:20)
[2023-07-26] MEDS: thiamine 100mg tablet PO SCH (08:24)
[2023-07-26] MEDS: pantoprazole 40mg Tablet.DR PO SCH (08:24)
[2023-07-26] MEDS: folic acid 0.4mg tablet PO SCH (08:25)
[2023-07-26] MEDS: sacubitril/valsartan 24mg-26mg tablet PO SCH ×2 (08:27→20:21)
[2023-07-26] MEDS: spironolactone 25 MG tablet PO SCH (08:30)
[2023-07-26] MEDS: furosemide 20 MG/2 ML vial IV SCH ×2 (08:30→20:20)
[2023-07-26] MEDS: methylPREDNISolone sod succ/PF 40mg inj. IV SCH ×2 (08:31→20:20)
[2023-07-26 08:32] LABS: HEMOGLOBIN 12.5 g/dl (14.0-17.9); RED CELL DISTRIBUTION WIDTH 19.3 % (11.5-14.5)
[2023-07-26 08:34] LABS: BASOPHILS # (AUTO) 0.2 X10'3 (0-0.2); BASOPHILS % (AUTO) 0.9 % (0-1); EOSINOPHILS % (AUTO) 0 % (0-6); HEMATOCRIT 41.5 % (42.0-52.0); LYMPHOCYTES # (AUTO) 1.1 X10'3 (1.1-4.8); LYMPHOCYTES % (AUTO) 4.5 % (21-51); MEAN CORPUSCULAR HEMOGLOBIN 24.7 PG (27.0-31.0); MEAN CORPUSCULAR VOLUME 82.3 FL (78-98); MEAN PLATELET VOLUME 9.2 FL (7.4-10.4); MONOCYTES % (AUTO) 4.2 % (2-12); NEUTROPHILS # (AUTO) 22.8 X10'3 (1.8-7.7); NEUTROPHILS % (AUTO) 90.4 % (42-75); PLATELET COUNT 285 X10'3 (140-440); RED BLOOD COUNT 5.04 X10'6 (4.70-6.10)
[2023-07-26 08:49] LABS: PROTHROMBIN TIME 11.2 SECONDS (9.0-12.0)
[2023-07-26 09:00] LABS: ALANINE AMINOTRANSFERASE 103 U/L (12-78); ALBUMIN 2.5 G/DL (3.4-5.0); ALBUMIN/GLOBULIN RATIO 0.6 (1.1-1.5); ALKALINE PHOSPHATASE 76 IU/L (46-116); AMYLASE 121 U/L (25-115); ANION GAP 8 (8-16); ASPARTATE AMINO TRANSFERASE 25 U/L (10-37); BILIRUBIN,TOTAL 0.2 MG/DL (0.1-1.0); BLOOD UREA NITROGEN 29 MG/DL (7-18); BUN/CREATININE RATIO 21.8 (10.0-20.0); CALCIUM 8.5 MG/DL (8.5-10.1); CHLORIDE 101 MMOL/L (99-107); CREATININE 1.33 MG/DL (0.60-1.10); GLUCOSE 135 MG/DL (70-104); LIPASE 204 U/L (73-393); MAGNESIUM 2.5 MG/DL (1.5-2.4); PHOSPHORUS 4.1 MG/DL (2.3-4.5); POTASSIUM 4.5 MMOL/L (3.5-5.1); SODIUM 135 MMOL/L (135-145); TOTAL PROTEIN 6.4 G/DL (6.4-8.2); eCRCL 68 ML/MIN; eGFR 59 ML/MIN
[2023-07-26 09:04] LABS: WHITE BLOOD COUNT 25.2 X10'3 (4.5-11.0)
[2023-07-26 09:21] LABS: ANISOCYTOSIS 2+; PLATELET ESTIMATE NORMAL; TOTAL CELLS COUNTED 100
[2023-07-26 09:22] LABS: HYPOCHROMASIA 1+; POLYCHROMASIA 2+; STOMATOCYTES 1+
[2023-07-26] MEDS: acetaminophen 325mg tablet PO PRN (10:31)
[2023-07-26 17:09] LABS: COCCIDIOIDES CF ANTIBODY <1:2 (<1:2)
--- NOTE | 2023-07-26 18:20 | NUR ---
Problems reprioritized. Patient report given, questions answered & plan of care reviewed with ignacio KNIGHT. Addendum: 07/26/23 at 1821 by Cindy Rea RN Amended: Links added.
--- NOTE | 2023-07-26 18:36 | NUR ---
Patient in room PCU 3010. I have received report from Cindy KNIGHT and had the opportunity to ask questions and assume patient care.
[2023-07-26] MEDS: buprenorphine/naloxone 2-0.5mg sublingual tablet SL SCH (20:18)
[2023-07-26] MEDS: ALPRAZolam 0.5mg tablet PO PRN (22:24)
[2023-07-27] VITALS (25 sets, daily range): BP systolic 100–153; BP diastolic 58–83; PULSE 77–97; RESP 13–22; TEMP 97.3–98.6; O2SAT 91–98
[2023-07-27] MEDS: heparin, porcine 5000 units/ml vial SQ SCH ×3 (00:57→16:08)
[2023-07-27] MEDS: ipratropium/albuterol 3ml nebule NEB SCH ×6 (03:25→23:21)
--- NOTE | 2023-07-27 06:32 | NUR ---
Patient in room PCU 3010. I have received report from Rosa M KNIGHT and had the opportunity to ask questions and assume patient care.Pt sleeping, No distress. O2 HF 25L/ 40% fio2 Addendum: 07/27/23 at 0635 by Cindy Rea RN Amended: Links added.
[2023-07-27 06:37] LABS: BASOPHILS % (AUTO) 0.1 % (0-1); EOSINOPHILS % (AUTO) 0 % (0-6); HEMATOCRIT 40.1 % (42.0-52.0); HEMOGLOBIN 12.1 g/dl (14.0-17.9); LYMPHOCYTES # (AUTO) 1.5 X10'3 (1.1-4.8); MEAN CORPUSCULAR HEMOGLOBIN 24.8 PG (27.0-31.0); MEAN CORPUSCULAR HGB CONC 30.2 g/dL (33.0-36.5); MEAN CORPUSCULAR VOLUME 82.3 FL (78-98); MEAN PLATELET VOLUME 9.1 FL (7.4-10.4); MONOCYTES # (AUTO) 1.5 X10'3 (0-0.9); MONOCYTES % (AUTO) 5.9 % (2-12); NEUTROPHILS # (AUTO) 21.8 X10'3 (1.8-7.7); PLATELET COUNT 236 X10'3 (140-440); RED BLOOD COUNT 4.87 X10'6 (4.70-6.10); RED CELL DISTRIBUTION WIDTH 19.3 % (11.5-14.5); WHITE BLOOD COUNT 24.7 X10'3 (4.5-11.0)
[2023-07-27 06:52] LABS: ALANINE AMINOTRANSFERASE 90 U/L (12-78); ALBUMIN 2.5 G/DL (3.4-5.0); ALBUMIN/GLOBULIN RATIO 0.7 (1.1-1.5); ALKALINE PHOSPHATASE 70 IU/L (46-116); ANION GAP 6 (8-16); ASPARTATE AMINO TRANSFERASE 22 U/L (10-37); BILIRUBIN,TOTAL 0.3 MG/DL (0.1-1.0); BLOOD UREA NITROGEN 31 MG/DL (7-18); BUN/CREATININE RATIO 26.3 (10.0-20.0); CALCIUM 8.6 MG/DL (8.5-10.1); CHLORIDE 101 MMOL/L (99-107); CREATININE 1.18 MG/DL (0.60-1.10); GLUCOSE 127 MG/DL (70-104); MAGNESIUM 2.6 MG/DL (1.5-2.4); PHOSPHORUS 4.5 MG/DL (2.3-4.5); POTASSIUM 4.9 MMOL/L (3.5-5.1); SODIUM 135 MMOL/L (135-145); TOTAL CARBON DIOXIDE 28.3 MMOL/L (24-32); TOTAL PROTEIN 6.1 G/DL (6.4-8.2); eCRCL 76 ML/MIN; eGFR 68 ML/MIN
--- NOTE | 2023-07-27 06:54 | NUR ---
Problems reprioritized. Patient report given, questions answered & plan of care reviewed with Cindy KNIGHT.
[2023-07-27 07:57] LABS: PLATELET ESTIMATE NORMAL
[2023-07-27 07:58] LABS: ANISOCYTOSIS 2+; LARGE PLATELETS FEW; MICROCYTOSIS 1+; POLYCHROMASIA 2+
[2023-07-27] MEDS: K and/or MAG REPLACEMENT MC SCH ×2 (08:00→18:17)
[2023-07-27] MEDS: multivitamins, therapeutics tablet PO SCH (08:49)
[2023-07-27] MEDS: folic acid 1mg tablet PO SCH (08:49)
[2023-07-27] MEDS: ferrous sulfate 325mg tablet PO SCH ×2 (08:49→19:15)
[2023-07-27] MEDS: metoprolol succinate 25mg (24-HOUR) SR. Tablet PO SCH (08:49)
[2023-07-27] MEDS: pantoprazole 40mg Tablet.DR PO SCH (08:49)
[2023-07-27] MEDS: thiamine 100mg tablet PO SCH (08:50)
[2023-07-27] MEDS: spironolactone 25 MG tablet PO SCH (08:50)
[2023-07-27] MEDS: docusate sod 100mg capsule PO SCH (08:50)
[2023-07-27] MEDS: folic acid 0.4mg tablet PO SCH (08:50)
[2023-07-27] MEDS: EMPAGLIFLOZIN 10 MG TABLET PO SCH (08:50)
[2023-07-27] MEDS: methylPREDNISolone sod succ/PF 40mg inj. IV SCH ×2 (08:51→19:08)
[2023-07-27] MEDS: furosemide 20 MG/2 ML vial IV SCH ×2 (08:51→19:09)
[2023-07-27] MEDS: sacubitril/valsartan 24mg-26mg tablet PO SCH ×2 (08:52→19:15)
[2023-07-27] MEDS: CefTRIAXone 2gm/D5W 50ml BAG 50 ML IV SCH (08:52)
[2023-07-27] MEDS: acetaminophen 325mg tablet PO PRN (16:32)
--- NOTE | 2023-07-27 18:00 | NUR ---
Patient in room PCU 3010. I have received report from EUGENE White and had the opportunity to ask questions and assume patient care.
--- NOTE | 2023-07-27 18:09 | NUR ---
Problems reprioritized. Patient report given, questions answered & plan of care reviewed with Miri KNIGHT. Pt denies needs. at bedside. Addendum: 07/27/23 at 1822 by Cindy Rea RN Amended: Links added.
[2023-07-27] MEDS ORDERED: LORazepam 2 mg/ml vial IV PRN (18:35)
[2023-07-27] MEDS: buprenorphine/naloxone 2-0.5mg sublingual tablet SL SCH (19:14)
[2023-07-28] VITALS (10 sets, daily range): BP systolic 113–125; BP diastolic 61–62; PULSE 63–108; RESP 14–18; TEMP 97.3–97.8; O2SAT 91–98
[2023-07-28] MEDS: heparin, porcine 5000 units/ml vial SQ SCH ×2 (00:30→07:44)
[2023-07-28] MEDS: ipratropium/albuterol 3ml nebule NEB SCH ×3 (03:13→10:37)
--- NOTE | 2023-07-28 03:18 | NUR ---
Throughout the night pt was seen by RT Q4 for breathing tx's. Pt has bilateral clear breath sounds. Diminished in the bases bilaterally but does not need PD&P at this time. Pt has a strong cough and is able to spontaneously get up secretions. RT will continue to monitor pt.
--- NOTE | 2023-07-28 06:30 | NUR ---
Problems reprioritized. Patient report given, questions answered & plan of care reviewed with EUGENE Eckert.
--- NOTE | 2023-07-28 06:40 | NUR ---
Patient in room PCU 3010. I have received report from TYLER KNIGHT and had the opportunity to ask questions and assume patient care.
[2023-07-28 06:51] LABS: BASOPHILS % (AUTO) 0 % (0-1); EOSINOPHILS % (AUTO) 0.1 % (0-6); HEMATOCRIT 42.4 % (42.0-52.0); HEMOGLOBIN 12.6 g/dl (14.0-17.9); LYMPHOCYTES # (AUTO) 1.7 X10'3 (1.1-4.8); LYMPHOCYTES % (AUTO) 8.8 % (21-51); MEAN CORPUSCULAR HEMOGLOBIN 24.8 PG (27.0-31.0); MEAN CORPUSCULAR HGB CONC 29.7 g/dL (33.0-36.5); MEAN CORPUSCULAR VOLUME 83.4 FL (78-98); MEAN PLATELET VOLUME 9.4 FL (7.4-10.4); MONOCYTES # (AUTO) 1.3 X10'3 (0-0.9); MONOCYTES % (AUTO) 6.9 % (2-12); NEUTROPHILS # (AUTO) 15.8 X10'3 (1.8-7.7); NEUTROPHILS % (AUTO) 84.2 % (42-75); PLATELET COUNT 198 X10'3 (140-440); RED BLOOD COUNT 5.08 X10'6 (4.70-6.10); WHITE BLOOD COUNT 18.7 X10'3 (4.5-11.0)
[2023-07-28 07:21] LABS: ALANINE AMINOTRANSFERASE 93 U/L (12-78); ALBUMIN 2.7 G/DL (3.4-5.0); ALBUMIN/GLOBULIN RATIO 0.7 (1.1-1.5); ALKALINE PHOSPHATASE 74 IU/L (46-116); ANION GAP 5 (8-16); ASPARTATE AMINO TRANSFERASE 23 U/L (10-37); BILIRUBIN,TOTAL 0.3 MG/DL (0.1-1.0); BLOOD UREA NITROGEN 29 MG/DL (7-18); CHLORIDE 98 MMOL/L (99-107); MAGNESIUM 2.6 MG/DL (1.5-2.4); PHOSPHORUS 4.6 MG/DL (2.3-4.5); POTASSIUM 4.7 MMOL/L (3.5-5.1); SODIUM 133 MMOL/L (135-145); TOTAL CARBON DIOXIDE 30.1 MMOL/L (24-32); TOTAL PROTEIN 6.5 G/DL (6.4-8.2)
[2023-07-28 07:32] LABS: ANISOCYTOSIS 2+; HYPERSEGMENTED NEUTROPHILS 1+; NUCLEATED RED BLOOD CELLS 1 /100WBC (0-0); PLATELET ESTIMATE NORMAL; TOTAL CELLS COUNTED 100
[2023-07-28 07:33] LABS: BURR CELLS FEW; POLYCHROMASIA 2+; STOMATOCYTES 1+
[2023-07-28] MEDS: methylPREDNISolone sod succ/PF 40mg inj. IV SCH (07:43)
[2023-07-28] MEDS: furosemide 20 MG/2 ML vial IV SCH (07:43)
[2023-07-28] MEDS: EMPAGLIFLOZIN 10 MG TABLET PO SCH (07:44)
[2023-07-28] MEDS: pantoprazole 40mg Tablet.DR PO SCH (07:44)
[2023-07-28] MEDS: folic acid 1mg tablet PO SCH (07:44)
[2023-07-28] MEDS: sacubitril/valsartan 24mg-26mg tablet PO SCH (07:45)
[2023-07-28] MEDS: spironolactone 25 MG tablet PO SCH (07:50)
[2023-07-28] MEDS: metoprolol succinate 25mg (24-HOUR) SR. Tablet PO SCH (07:50)
[2023-07-28] MEDS: CefTRIAXone 2gm/D5W 50ml BAG 50 ML IV SCH (07:50)
[2023-07-28] MEDS: multivitamins, therapeutics tablet PO SCH (07:50)
[2023-07-28] MEDS: thiamine 100mg tablet PO SCH (07:50)
[2023-07-28] MEDS: ferrous sulfate 325mg tablet PO SCH (07:50)
[2023-07-28] MEDS: K and/or MAG REPLACEMENT MC SCH (08:00)
[2023-07-28 08:47] LABS: BUN/CREATININE RATIO 21.8 (10.0-20.0); CREATININE 1.33 MG/DL (0.60-1.10); GLUCOSE 115 MG/DL (70-104); eCRCL 68 ML/MIN; eGFR 59 ML/MIN
--- NOTE | 2023-07-28 10:50 | NUR ---
O2 Sat at rest on room air:_88% If below 89%: Recovery O2 Sat at rest on 88% LPM:_%:_% via (mask/nasal cannula, etc..) No further documentation is necessary. If O2 Sat did not drop below 89% on room air,ambulate patient on room air. O2 Sat while ambulating on room air:___% Recovery O2 Sat while ambulating on ___LPM:___% No further documentation is necessary. If patient does not drop below 89% while ambulating, he/she does not qualify for home O2.
[2023-07-28] MEDS ORDERED: EMPA10TA PO (11:46)
[2023-07-28] MEDS ORDERED: thiamine tablet PO (11:46)
[2023-07-28] MEDS ORDERED: IPRA3AMP9 NEB (11:46)
[2023-07-28] MEDS ORDERED: FOLI1TAB27 PO (11:46)
[2023-07-28] MEDS ORDERED: MULT-25 PO (11:46)
[2023-07-28] MEDS ORDERED: SACU1TAB PO (11:46)
[2023-07-28] MEDS ORDERED: FER325T PO (11:46)
[2023-07-28] MEDS ORDERED: METO-395 PO (11:46)
[2023-07-28] MEDS ORDERED: FURO-150 PO (11:59)
[2023-07-28] MEDS ORDERED: SPIR25TA PO (11:59)
[2023-07-28] MEDS ORDERED: LEVO-65 PO ×2 (11:59)
[2023-07-28] MEDS ORDERED: PRED10TA23 PO (11:59)
--- NOTE | 2023-07-28 14:18 | NUR ---
PAGER ID: [phone] MESSAGE: EUGENE DAVIS, [facility], [id number]. RE: [id number]. PT. INSURANCE WANTS AUTHORAZATION FOR ([facility]. INSURANCE # . FAX # .
--- NOTE | 2023-07-28 14:29 | NUR ---
PT. ALERT AND STABLE UPON DISCHARGE. IV CANNULA WHOLE AND INTACT UPON REMOVAL. PT. EDUCATED ON NEW MEDS AND 02 THERAPY. PT. EDUCATED TO FOLLOW UP WITH PRIMARY DOCTOR IN 1 WEEK. PT. ESCORTED SAFELY INTO PRIVATE VEHICLE. PT. LEFT WITH ALL BELONGINGS.
== END 2023-07-28 14:25 | disposition home or self-care (01) | DRG 871 ==
LOC: ER 09:19 → ED HOLD 15:23 → CICU 2S 20:27 → PCU 3S 07-21 11:45
PROVIDERS: ADMIT Internal Medicine Critical Care Medicine; ATTEND Internal Medicine Critical Care Medicine
PROC: 5A09357 Assistance with Respiratory Ventilation, Less than 24 Consecutive Hours, Continuous Positive Airway Pressure (ICD-10-PCS; principal; 2023-07-18)
PROC: 5A0935A Assistance with Respiratory Ventilation, Less than 24 Consecutive Hours, High Flow/Velocity Cannula (ICD-10-PCS; 2023-07-19)
PROC: 5A0935A Assistance with Respiratory Ventilation, Less than 24 Consecutive Hours, High Flow/Velocity Cannula (ICD-10-PCS; 2023-07-20)
PROC: 5A0935A Assistance with Respiratory Ventilation, Less than 24 Consecutive Hours, High Flow/Velocity Cannula (ICD-10-PCS; 2023-07-21)
PROC: 5A0935A Assistance with Respiratory Ventilation, Less than 24 Consecutive Hours, High Flow/Velocity Cannula (ICD-10-PCS; 2023-07-22)
PROC: 5A0935A Assistance with Respiratory Ventilation, Less than 24 Consecutive Hours, High Flow/Velocity Cannula (ICD-10-PCS; 2023-07-23)
PROC: 5A0935A Assistance with Respiratory Ventilation, Less than 24 Consecutive Hours, High Flow/Velocity Cannula (ICD-10-PCS; 2023-07-24)
PROC: 5A0935A Assistance with Respiratory Ventilation, Less than 24 Consecutive Hours, High Flow/Velocity Cannula (ICD-10-PCS; 2023-07-25)
PROC: 5A0935A Assistance with Respiratory Ventilation, Less than 24 Consecutive Hours, High Flow/Velocity Cannula (ICD-10-PCS; 2023-07-26)
PROC: 5A0935A Assistance with Respiratory Ventilation, Less than 24 Consecutive Hours, High Flow/Velocity Cannula (ICD-10-PCS; 2023-07-27)
DX: A41.9 Sepsis, unspecified organism (principal); I50.23 Acute on chronic systolic (congestive) heart failure; J80 Acute respiratory distress syndrome; J18.9 Pneumonia, unspecified organism; N17.0 Acute kidney failure with tubular necrosis; E66.2 Morbid (severe) obesity with alveolar hypoventilation; E87.1 Hypo-osmolality and hyponatremia; I42.9 Cardiomyopathy, unspecified; I11.0 Hypertensive heart disease with heart failure; D64.9 Anemia, unspecified; G89.4 Chronic pain syndrome; I34.0 Nonrheumatic mitral (valve) insufficiency; Z20.822 Contact with and (suspected) exposure to COVID-19; R65.20 Severe sepsis without septic shock; E86.0 Dehydration; Z82.49 Family history of ischemic heart disease and other diseases of the circulatory system; Z68.38 Body mass index [BMI] 38.0-38.9, adult
CPT/HCPCS: 36415; 36600; 71045; 71275; 80048; 80053; 80061; 80305; 81003; 82150; 82570; 82728; 82803; 83036; 83540; 83550; 83605; 83690; 83735; 83880; 84100; 84132; 84145; 84156; 84443; 84484; 85007; 85008; 85018; 85025; 85379; 85610; 85651; 85730; 86038; 86140; 86256; 86703; 87040; 87070; 87081; 87502; 87503; 87811; 93005; 93306; 93970; 94640; 94660; 94664; 94668; 94760; 96365; 97110; 97116; 97161; 97530; 99285; A4615; A4620; A6213; A6258; C1758; G0378; J0456; J0696; J1644; J1885; J1940; J2060; J2916; J2920; J2930; J3490; J7040; Q9967